=== PATIENT | female | born 1950 | race Caucasian/White ===

== ENCOUNTER → 2017-06-04 | Outpatient (CLI) | payer OTHER ==
[~2017-06-04] MED LIST: ALBUTEROL2.5 MG/31 INH; ASPIRIN EC81 M1 PO; B-12500 MCG PO; CELEXA 10 MG TA10 MG PO; FERROUS FUMARAT PO; GLUCOPHAGE1000 MG PO; HUMALOG PE100 UNIT/1 SC; HYDROCHLOROTH12.5 MG PO; HYDROXYZINE HCL25 M1 PO; LANTUS SUBQ; LEVOTHYROXIN0.125 M1 PO; LOVASTATIN 20 M20 MG PO; OMEPRAZOLE40 MG PO; SINGULAIR 10 MG10 M1 PO; SYMBYAX 12-501 EACH PO; THEOPHYLLINE S300 M1 PO; ZYRTEC 10 MG TA10 M1 PO
== END ==
LOC: M.RAD 11:19
DX: M79.651 Pain in right thigh (principal); M71.21 Synovial cyst of popliteal space [Baker], right knee